=== PATIENT | male | born 1980 | race African-American/Black ===

== ENCOUNTER 2018-08-07 20:17 | Emergency (ER) | payer OTHER ==
[~2018-08-07] VITALS: Ht 170.2 cm; Wt 67.6 kg
[2018-08-07 20:33] VITALS: BP 145/98
[2018-08-07] MEDS ORDERED: HYDROcodone/Acetamin 10/325 tab ORAL ONE (21:15)
[2018-08-07] MEDS ORDERED: NORCO 10-325 T1 EACH ORAL (21:48)
[2018-08-07 22:02] VITALS: BP 141/95
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
--- NOTE | 2018-08-08 17:47 | Diagnostic Imaging Report ---
Indication: Right hand pain Technique: 3 views right hand Comparison: none Findings: There are oblique fractures of the second and third distal metacarpal shafts. These are slightly angulated and displaced. There is a transverse nondisplaced fracture of the second proximal phalangeal shaft. No other acute fractures. No dislocations. The joint spaces are preserved. Impression: Positive for fractures of the second and third distal metacarpal shafts and the second proximal phalangeal shaft
== END 2018-08-07 22:02 ==
LOC: EMR 20:57
DX: S62.320A Displaced fracture of shaft of second metacarpal bone, right hand, initial encounter for closed fracture (principal); S62.322A Displaced fracture of shaft of third metacarpal bone, right hand, initial encounter for closed fracture; W22.8XXA Striking against or struck by other objects, initial encounter; Y92.89 Other specified places as the place of occurrence of the external cause
CPT/HCPCS: 29125; 99283